=== PATIENT | female | born 2000 | race Caucasian/White ===

== ENCOUNTER 2022-02-07 12:51 | Outpatient (CLI) | payer BC, SELFPAY | END 2022-02-07 12:52 | disposition home or self-care (01) | LOC: LKVREF 02-12 14:29 | PROVIDERS: PCP Emergency Medicine; Visit Provider Nurse Practitioner Family | DX: R30.0 Dysuria (principal); N39.0 Urinary tract infection, site not specified | CPT/HCPCS: 87086; 87186 ==

== ENCOUNTER 2022-08-01 15:43 | Outpatient (CLI) | payer OTHER, SELFPAY ==
--- NOTE | 2022-08-01 16:00 | CRLHL7_ITS ---
For Patients: As a result of the Century Cures Act, medical imaging exams and procedure reports are released immediately into your electronic medical record. You may view this report before your referring provider. If you have questions, please contact your health care provider. CLINICAL HISTORY: PELVIC PAIN, POST COITAL BLEEDING, IUD PLACEMENT TECHNIQUE: 2D peoples scale ultrasound. In addition color Doppler and spectral Doppler analysis was performed of the pelvis using a transabdominal and transvaginal approach. FINDINGS: On transvaginal imaging, the myometrium has a normal uniform echotexture. The uterus measures 6.6 x 3.2 x 4.1 cm. Intrauterine device is located in good position within the endometrial canal. The right ovary measures 3.7 x 1.7 x 2.3 cm in size and the left ovary measures 3.6 x 1.5 x 2.5 cm. The ovaries demonstrate normal arterial and venous blood flow on color Doppler and spectral Doppler analysis. There are no suspicious fluid collections within the cul-de-sac. IMPRESSION: Good position of the intrauterine device within the endometrial canal. Normal ovaries without torsion. No adnexal mass or excess pelvic free fluid. Dictated by Олег Cisse MD @ 08/02/2022 8:53:55 AM (Electronically Signed)
== END 2022-08-01 15:44 | disposition home or self-care (01) ==
LOC: US 15:44
PROVIDERS: PCP Emergency Medicine; Visit Provider Physician Assistant
DX: R10.2 Pelvic and perineal pain (principal); Z30.431 Encounter for routine checking of intrauterine contraceptive device
CPT/HCPCS: 76830; 76856; 93976

== ENCOUNTER 2023-03-04 16:07 | Outpatient (REF) | payer OTHER, SELFPAY | END 2023-03-04 16:08 | disposition home or self-care (01) | LOC: NFLDREF 16:07 | PROVIDERS: PCP Emergency Medicine; Referring Provider Emergency Medicine; Visit Provider Physician Assistant | DX: R30.0 Dysuria (principal); R39.15 Urgency of urination | CPT/HCPCS: 87086; 87186 ==

== ENCOUNTER 2023-07-29 14:42 | Outpatient (CLI) | payer BC, SELFPAY | END 2023-07-29 14:43 | disposition home or self-care (01) | LOC: NFLDREF 08-01 09:18 | PROVIDERS: PCP Emergency Medicine; Referring Provider Emergency Medicine; Visit Provider Physician Assistant | DX: R30.0 Dysuria (principal); B96.20 Unspecified Escherichia coli [E. coli] as the cause of diseases classified elsewhere | CPT/HCPCS: 87086; 87186 ==

== ENCOUNTER 2023-10-08 15:48 | Outpatient (CLI) | payer BC, SELFPAY | END 2023-10-08 15:49 | disposition home or self-care (01) | PROVIDERS: PCP Emergency Medicine; Visit Provider Family Medicine | DX: Z00.00 Encounter for general adult medical examination without abnormal findings (principal); R51.9 Headache, unspecified | CPT/HCPCS: 80048; 84443; 85025 ==

== ENCOUNTER 2024-03-12 15:29 | Outpatient (CLI) | payer BC, SELFPAY | END 2024-03-12 15:30 | disposition home or self-care (01) | LOC: LKVREF 15:31 | PROVIDERS: PCP Emergency Medicine; Visit Provider Emergency Medicine | DX: R42 Dizziness and giddiness (principal) | CPT/HCPCS: 80053 ==